=== PATIENT | male | born 1975 | race African-American/Black ===

== ENCOUNTER 2020-04-26 18:34 | Emergency (ER) | payer MEDICAID, SELFPAY ==
--- NOTE | 2020-04-26 19:57 | ED_ITS ---
HPI - Wound/Laceration General Chief Complaint: Wound/Laceration Stated Complaint: Laceration Time Seen by Provider: 04/26/20 19:35 Source: patient Mode of arrival: ambulatory Limitations: language barrier History of Present Illness HPI narrative: 45-year-old male past medical history of diabetes presents with laceration to the left thumb. He was cleaning his knee clean for and the knife slipped out of his hand cutting the lateral aspect of the left thumb. He was able to control bleeding by applying a pressure dressing. He does not have any difficulty moving his thumb but states that every time he bends it the wound opened and he starts bleeding. Onset (ago): hour(s) (Within the hour of arrival) Location: other (Left thumb) Place: home Patient tetanus UTD: No Context: accidental Associated symptoms: none Treatments prior to arrival: bandage Related Data Previous Rx's Medication Instructions Recorded amoxicillin-pot clavulanate 1 tab PO Q12H 10 Days #20 tab 04/26/20 [Augmentin] Allergies Allergy/AdvReac Type Severity Reaction Status Date / Time No Known Allergies Allergy Unverified 12/12/19 18:26 [No Known Allergies*] Review of Systems Review of Systems: Constitutional: No Fever, No Chills ENT/Mouth: No Ear Pain, No Hoarseness, No sore throat Eyes: No Eye Pain, No Swelling, No Redness, No Foreign Body Cardiovascular: No Chest Pain, No SOB Respiratory: No Cough, No Dyspnea Gastrointestinal: No Nausea, No Vomiting, No Diarrhea, No abdominal Pain Genitourinary: No Dysuria, No Hematuria Musculoskeletal: No joint pain, No Myalgias, No Joint Swelling Skin: Positive left thumb lacerations, No rash Neuro: No Weakness, No Numbness, No Paresthesias, No Loss of Consciousness, No Dizziness, No Headache Psych: No Anxiety/Panic, No Depression Heme/Lymph: no easy bruising, no Lymphadenopathy Endocrine: No Polyuria, No Polydipsia Yes all other systems are reviewed and are negative [facility] Past Medical History Attestation statement: The following information was validated with the patient. Source: old records reviewed Medical History (Updated 04/26/20 @ 20:43 by Gloria Canseco NP) Diabetes Social History Social History Alcohol intake: never Smoking Status: Current every day smoker Use of substances other than those prescribed or required for medical reasons: Yes Substance Use Type: Marijuana Advance Directives: No Advance Directives Information Provided: Yes Physical Exam Vital Signs: Vital Signs: Last Vital Signs Temp 97 F 04/26/20 20:03 Pulse 92 04/26/20 20:03 Resp 17 04/26/20 20:03 BP 138/87 04/26/20 20:03 Pulse Ox 98 04/26/20 20:03 Body Mass Index 30.7 Appearance: Alert. Oriented X3. No acute distress. Eyes: Pupils equal, round and reactive to light. ENT: Pharynx normal. Neck: Normal inspection. Neck supple. CVS: Normal heart rate and rhythm. Pulses normal. Respiratory: No respiratory distress. Breath sounds normal. Abdomen: Soft and nontender. Skin: 2 cm laceration to left lateral thumb, all other Skin warm and dry. Normal skin color. Normal skin turgor. Extremities: No lower extremity edema. Full range of motion to all digits, pulses equal, no indication of tendon injury, strength 5/5 to all extremities and digits Neuro: No motor deficit. No sensory deficit. Course Course Course Narrative: 45-year-old male presents for lacerations to the left thumb. Plan of care is for x-ray and 2 suture, update Tdap vaccine. We will treat with antibiotics as patient was cutting meat and he is an insulin- dependent diabetic. Prepped and draped in sterile fashion, 4 sutures applied. Please refer to procedure note for full details. Patient tolerated procedure well. Full range of motion and brisk capillary refill status post laceration repair. Patient verbalized understanding of and agrees to plan of care discharge home. Does understand that he must wait for 14 days to remove sutures. distance education faculty liaison utilized for all correspondence. Google translate utilized for discharge instructions. MDM - Wound/Laceration Differential Diagnosis Differential diagnosis: Likely laceration Medical Records Attestation: I reviewed the patient's medical records. Imaging Data Left thumb x-ray: Attestation: I personally reviewed and interpreted this imaging study as follows: Radiologist's impression: EXAMINATION: XR FINGER, LEFT CLINICAL INFORMATION: Thumb laceration COMPARISON: None TECHNIQUE: 4 views FINDINGS: Question subtle skin/soft tissue irregularity at the level of the distal first proximal phalanx. No radiopaque foreign body is identified. No fracture or dislocation. Remainder of the bones appear intact. XR/XR finger LT min 2V IMPRESSION: No evidence of acute fracture. No radiopaque foreign body is identified. Discharge Plan Discharge Clinical Impression: Laceration Patient Disposition: Home, Self-Care Instructions: Finger Laceration (ED) Additional Instructions: Te evaluaron laceraci?n en el pulgar devika. Por favor, regrese en 14 d?as para que le quiten las suturas. Por favor, tome Augmentin shannan se indica. Complete todo el curso de adria medicamento. No remoje, ba?e ni exponga la laceraci?n a l?quidos roberto carlos largos per?odos de tiempo. Si nota alguna indicaci?n de infecci?n, hinchaz?n o p?rdida de sensibilidad en el pulgar, por favor regrese al departamento de emergencias inmediatamente. Castro por elegir adria departamento de emergencias para la evaluaci?n. Por favor, renato un seguimiento con el m?dico de atenci?n primaria seg?n sea necesario. Regrese al servicio de urgencias para cualquier s?ntoma nuevo, preocupante o que empeore. You were evaluated laceration to the left thumb. Please return in 14 days to have sutures removed. Please take Augmentin as directed. Complete the entire course of this medication. Do not soak, bathe, or expose the laceration to liquids for lengthy periods of time. If you notice any indication of infection, swelling, or loss of sensation in the thumb please return to the emergency department immediately. Thank you for choosing this emergency department for evaluation. Please follow-up with primary care physician as needed. Return to the emergency department for any new, concerning, or worsening symptoms. Prescriptions: New amoxicillin-pot clavulanate [Augmentin] 875-125 mg tablet 1 tab PO Q12H 10 Days Qty: 20 RF: 0 Interventions: ED Discharge Assessment Last Done: 04/26/20 21:25
[2020-04-26 20:03] VITALS: BP 138/87; PULSE 92; RESP 17; TEMP 36.1; O2SAT 98; BMI 30.7
[2020-04-26] MEDS: Lidocaine HCl 2 % MPF 5 ML VIAL SUBCUT (20:14)
[2020-04-26] MEDS: Amoxicillin/Potassium Clav 875 MG TABLET PO (20:47)
--- NOTE | 2020-04-26 20:47 | PC.NURSE ---
pt medicatred per order
== END 2020-04-26 21:44 | disposition home or self-care (01) ==
PROVIDERS: Emergency Provider Internal Medicine; PCP Internal Medicine
DX: S61.012A Laceration without foreign body of left thumb without damage to nail, initial encounter (principal); S60.312A Abrasion of left thumb, initial encounter; M79.645 Pain in left finger(s); E11.9 Type 2 diabetes mellitus without complications; W26.0XXA Contact with knife, initial encounter; Y93.G3 Activity, cooking and baking; Y92.000 Kitchen of unspecified non-institutional (private) residence as the place of occurrence of the external cause; Y99.9 Unspecified external cause status; Z23 Encounter for immunization; Z79.4 Long term (current) use of insulin
CPT/HCPCS: 73140; 90471; 90715; 99284

== ENCOUNTER 2020-05-10 15:38 | Emergency (ER) | payer MEDICAID, SELFPAY ==
--- NOTE | 2020-05-10 15:45 | ED.WOUNDLAC ---
HPI - Wound/Laceration General Stated Complaint: suture removal Time Seen by Provider: 05/10/20 15:44 Source: patient Mode of arrival: ambulatory Limitations: no limitations History of Present Illness HPI narrative: 45 y/o male presenting for suture removal in his left thumb. He was initially seen here on 04/26 after sustaining an accidental laceration from a knife. Wound has been healing nicely and he has no complaints. Onset (ago): week(s) (2) Extremity Location: left: hand (thumb) Place: home Patient tetanus UTD: Yes Context: accidental Associated symptoms: none Related Data Previous Rx's Medication Instructions Recorded amoxicillin-pot clavulanate 1 tab PO Q12H 10 Days #20 tab 04/26/20 [Augmentin] Allergies Allergy/AdvReac Type Severity Reaction Status Date / Time No Known Allergies Allergy Unverified 12/12/19 18:26 [No Known Allergies*] Review of Systems Review of Systems: Constitutional: No Fever, No Chills Musculoskeletal: No joint pain Skin: No Skin Lesions, No rash Neuro: No Weakness, No Numbness Heme/Lymph: No Bruising PMFSH Past Medical History Attestation statement: The following information was validated with the patient. Medical History Diabetes Social History Social History Alcohol intake: never Smoking Status: Current every day smoker Substance Use Type: Marijuana Physical Exam Vital Signs: Vital Signs: Appearance: Alert. Oriented X3. No acute distress. HEENT: normal inspection Respiratory: No respiratory distress. Skin: Skin warm and dry. Normal skin color. Normal skin turgor. No rashes. Extremities: left thumb with well healing laceration, [address] no surrounging erythema, drainage or tenderness. normal thumb ROM and sensation. Neuro: Oriented X 3. No motor deficit. No sensory deficit. Course Course Course Narrative: 45 y/o male presenting for suture removal in his left thumb after repair on 04/26. Wound has healed nicely. Sutures removed. Stable for d/c. Reevaluation(s) Reevaluation #1: Procedure at 15:45 - wound was cleaned with betadine and rubbing alcohol. 4 sutures were removed using sterile scissors and tweezers wound is completely closed and healed nicely band-aid applied. patient tolerated well. normal thumb ROM and sensation. Discharge Plan Discharge Clinical Impression: Encounter for removal of sutures Patient Disposition: Home, Self-Care Instructions: Stitches Removal (ED) Additional Instructions: Recommend bacitracin or Neosporin daily to continue wound healing. Prescriptions: No Action amoxicillin-pot clavulanate [Augmentin] 875-125 mg tablet 1 tab PO Q12H 10 Days Qty: 20 RF: 0 Print Language: Swedish
[2020-05-10 15:53] VITALS: BP 139/86; PULSE 100; RESP 16; TEMP 36.5; O2SAT 98; BMI 30.7
[2020-05-10 15:55] VITALS: BP 139/86; PULSE 100; RESP 16; TEMP 36.5; O2SAT 98; BMI 30.7
== END 2020-05-10 16:06 | disposition home or self-care (01) ==
LOC: HO.ED 16:02
PROVIDERS: Emergency Provider Emergency Medicine Emergency Medical Services; PCP Internal Medicine
DX: Z48.02 Encounter for removal of sutures (principal)
CPT/HCPCS: 99283

== ENCOUNTER 2020-05-12 10:00 | Outpatient (RCR) | payer MEDICAID, SELFPAY ==
--- NOTE | 2020-03-16 13:18 | MHC.OT.OEV ---
[address] [phone] F: [phone] Occupational Therapy Evaluation Diagnosis: L LATERAL EPICODYLITIS OF L ELBOW Date of Onset: 12/16/19 Attending Provider: Thalia Galdamez Prescribed Treatment: EVAL AND TREAT History of Current Condition: REPORTS NEW ONSET OF PAIN TO LEFT ELBOW AND RETURN OF PAIN TO LEFT SHOULDER. PAIN RADIATES DOWN LEFT ARM. DENIES CHANGE IN ROUTINE OR NEW HOBBIES. RECENT CORTISONE INJECTION TO LEFT SHOULDER. STATES HX OF ATTENDING THERAPY FOR L SHOULDER OVER ONE YEAR AGO AT [facility] CORE PT. Significant Medical History: DM, TOB USE, CERVICAL RADICULOPATHY, SPINAL STENOSIS OF THORACOLUMBAR REGION, OA Precautions/Contraindications: HX DM Patient Goals: FOR THE PAIN TO GO AWAY Hand Dominance: Right QuickDASH Score: UNABLE TO COMPLETE Prior Level of Function and Occupation Self Care, Employment, Leisure: DISABLED x5 YEARS DUE TO ISSUES IN BACK; RECEIVED ASSIST WITH IADLs AT BASELINE Living Situation, Family and/or Social Support: LIVES WITH SPOUSE Current Level of Function and Occupation Self Care, Employment, Leisure: DIFFICULTIES WITH PUTTING ON SHOES AND SWEATER/ JACKET; Pt VAGUE WITH RECALLING RECENT LIMITATIONS FROM LUE PAIN Sleep: SEVERE DIFFICULTIES, UNABLE TO LAY ON LEFT SIDE Driving: DOES NOT DRIVE Vision: IMPAIRED, WEARS EYE GLASSES Balance: AMBULATES WITH SPC (HELD IN RIGHT HAND) DUE TO BACK PAIN AND LEG DISCREPINCY Pain Assessment Pain Score: 7-9 Pain Scale Used: Numeric (0 - 10) Pain Location and Description: L ELBOW (7-8/10 AT REST AND 9/10 WITH ACTIVITY) Aggravating Factors: ELBOW EXTENSION AND FOREARM ROTATION; WEIGHTBEARING THROUGH LEFT ARM Alleviating Factors: DICLOFENAC GEL PRESCRIBED BY MD, OXYCODONE; HAS NOT TRIED ICE/HEAT Skin and Soft Tissue Assessment Skin and Soft Tissue: Comments: WNL Sensory Assessment Temperature: Light Touch: Proprioception: Vibration: Comments: CONT TO ASSESS AT F/U SESSIONS DUE TO TIME CONSTRAINT; HX OF DM WITH REPORTS OF NUMBNESS AT DISTAL DIGITS Edema Assessment Upper Extremity: WNL Lower Extremity: Comments: CIRCUMFERENCE OF FOREARM, 20 CM PROXIMAL TO U.S. LEFT: 29.8 CM, RIGHT: 30.1 CM CIRCUMFERENCE OF WRIST, DISTAL TO U.S. LEFT: 17.7 CM, RIGHT: 18.3 CM Dexterity Assessment Dexterity: WFL Comments: CONT TO ASSESS NEEDED Special Tests Comments: AROM(PROM) Strength Shoulder Flexion: L 95, R 150 Extension: L 55, R 88 Abduction: Internal Rotation: External Rotation: Comments: Flexion: Extension: Abduction: Internal Rotation: External Rotation: Comments: Elbow Flexion: L 106, R 145 Extension: L 6, R 4 Pronation: L 86, R 88 Supination: L 82, R 83 Comments: Flexion: Extension: Pronation: Supination: Comments: Wrist Flexion: L 52, R 62 Extension: L 60, R 60 Ulnar Deviation: Radial Deviation: Comments: Flexion: Extension: Ulnar Deviation: Radial Deviation: Comments: Digits Index MCP: PIP: DIP: Long MCP: PIP: DIP: Ring MCP: PIP: DIP: Small MCP: PIP: DIP: Comments: Gross Grasp: L 15, R 116 Lateral Pinch: Two-Point Pinch: Three-Jaw Isauro: Comments: L ELBOW EXT 5 POUND; R ELBOW EXT 120 POUND FINANCIAL INSTITUTION MANAGER STRENGTH INCREASE PAIN TO LATERAL ELBOW WITH ELBOW EXT TESTING Patient Education Primary Language: Special Equipment Technician Required: Yes Current Knowledge: Minimal, needs reinforcement Teaching Method: Demonstration Handouts Verbal Education Needs Identified on Evaluation: ADL's Disease Information Equipment Use Exercise Pain Safety How did patient/family demonstrate learning? Patient demonstrates Patient verbalizes Family/SO demonstrates Family/SO verbalizes Needs reinforcement Barriers to Learning: Vision Other Readiness for Learning: Accepting Who was educated? Patient Family/spouse Comments: VIVIANA MASONRY SUPERVISOR UTILIZED #[id number] Plan of Care Assessment: 45 Y/O BERMUDIAN SPEAKING M P/W L LATERAL ELBOW PAIN, WELL RADIATING PAIN THROUGHOUT NON-DOMINANT L UE. HE STATES HIS PAIN IS GREATEST WITH END RANGE ELBOW EXTENSION AND ROTATION OF THE FOREARM. Pt WOULD BENEFIT FROM ADDITIONAL PATIENT EDUCATION ON MECHANISM OF INJURY, POSSIBLE USE OF CFB AND STRETCHING/STRENGTHENING TO ADDRESS THE AREAS MENTIONED ABOVE. STG Duration: 2 WEEKS Short Term Goals: IND HEP IND USE OF HEAT/ICE IND JOINT PROTECTION AND ACTIVITY MODIFICATION IND ORTHOSIS/ CFB WEAR REPORT <4/10 PAIN AT REST LTG Duration: Mcc Goals: REPORT MIN-MOD SLEEP INTERRUPTIONS DUE TO LUE PAIN REPORT <4/10 PAIN WITH MODERATE LEVEL ADLs/IADLs IMPROVE GROSS GRASP LUE >50 POUNDS Frequency and Duration: The patient will be seen Treatment Plan: Therapeutic Exercise Therapeutic Activity Home Exercise Program Splinting Neuro Re-ed Patient Education Desensitization/Sensory Re-ed Edema Control ADL Training NMES MHP Cold Packs Joint Mobilization Soft Tissue Mobilization Kinesiotaping Electronically Signed By: LUISA MARINO OTR/L Please sign and return to therapist, Thank you for your referral.
--- NOTE | 2020-05-12 13:19 | MHC.OT.DC ---
[address] [phone] F: [phone] Occupational Therapy Discharge Note Provider: Thalia Galdamez Diagnosis: L LATERAL EPICODYLITIS OF L ELBOW Date of Surgery: Date of Evaluation: 03/16/20 Date of Discharge: 05/12/20 Treatments to Date: 11 Cancellations to Date: No Shows to Date: Discharge Status: Achieved Goals Improved Function Independent with HEP Discharge Summary: MR. KATHE SMITH HAS ACHIEVED HIS GOALS AND REPORTS MINIMAL PAIN TO LEFT LATERAL ELBOW. A NIGHT RESTING SPLINT WAS FABRICATED AND HAS SIGNIFICANTLY REDUCED HIS PAIN. HE DEMO GOOD FOLLOW THOUGH WITH HIS HEP AND ORTHOSIS WEAR, WELL GOOD UNDERSTANDING OF JOINT PROTECTION. NO LEFT HAND PARASTHESIA REPORTED. D/C OT SERVICES. Electronically Signed By: LUISA MARINO OTR/L Reviewed/agree with student documentation: N/A Therapist: Please Sign and return to therapist, thank you for your referral.
== END 2020-05-12 13:20 | disposition other institution (70) ==
LOC: HO.OT 10:00
PROVIDERS: PCP Internal Medicine; Visit Provider Internal Medicine
DX: M77.12 Lateral epicondylitis, left elbow (principal)
CPT/HCPCS: 29125; 97035; 97110; 97140; 97166; 97760

== ENCOUNTER 2020-08-21 10:00 | Outpatient (RCR) | payer MEDICAID, SELFPAY ==
--- NOTE | 2020-06-26 15:29 | MHC.PT.EP ---
[facility] [place] [facility] [place] [facility] [place] [facility] [address] [phone] F: [phone] F: [phone] F: [phone] F: [phone] Physical Therapy Plan of Care Date of Evaluation: 06/26/20 Date of Surgery: 10/2015 Diagnosis: LUMBAR DISC HERNIATION WITH RADICULOPATHY (M51.16) Assessment: Pt presents to PT with diagnosis of lumbar disc herniation with radiculopathy (M51.16) . upon exam pt demonstrates impairments of increased pain, decreased LE ROM and strength anne marie, altered gait pattern with decreased speed of ambulation and increased reliance on assistive device. Functional limitations include decreased ability to perform walking and transfers without assistive device, decreased tolerance to performing self care and homemaking tasks, decreased ability to lift greater than 5#, decreased ability to participate in community and recreational tasks. Frequency and Duration: The patient will be seen 2 x week for 6 weeks Short Term Goals: review and progress previous HEP Track Greaser Goals: IN 6 WEEKS INDEPENDENT HEP AND SELF MANAGEMENT OF SYMPTOMS LE STRENGTH AT MINIMUM OF 4/5 T/O TO AMBULATE AT MINIMUM 15 MINS WITH PAIN NO GREATER THAN 3/10 TO CLIMB STAIRS WITH RECIPROCAL GAIT AND 1 RAIL Treatment Plan: Modalities to reduce pain, spasms and effusion. Manual therapy to restore motion and function. Therapeutic exercise to improve strength and flexibility. Neuromuscular re-education for posture and balance. Therapeutic activities to return to functional activities of daily living. Electronically signed by: ANN MALDONADO PT, DPT Please sign and return to therapist. Thank you for your referral.
--- NOTE | 2020-09-15 15:36 | MHC.PT.DC ---
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 HE DEMONSTRATES IMPROVED BODY MECHANICS AND POSTURE. ROM AND STRENGTH OF LUMBAR SPINE AND HIPS IS IMPROVED BUT PAIN LEVELS REMAIN ABOUT THE SAME SUBJECTIVELY. AT THIS TIME IT IS RECOMMENDED THAT KRISTEN CONTINUE WITH CURRENT HOME PROGRAM, PROGRESSING TO COMMUNITY BASED FITNESS PROGRAM ABLE. Electronically signed by: ANN MALDONADO PT, DPT Please sign and return to therapist. Thank you for your referral.
== END 2020-09-15 15:37 | disposition other institution (70) ==
LOC: HO.PT 10:00
PROVIDERS: PCP Internal Medicine; Visit Provider Internal Medicine
DX: M51.16 Intervertebral disc disorders with radiculopathy, lumbar region (principal)
CPT/HCPCS: 97014; 97110; 97140; 97162; 97530; 97535

== ENCOUNTER 2021-02-02 20:56 | Emergency (ER) | payer MEDICAID, SELFPAY ==
--- NOTE | ~2021-02-02 | XR_ITS ---
EXAMINATION: XR CHEST CLINICAL INFORMATION: Cough. COMPARISON: None TECHNIQUE: Frontal portable view of the chest was obtained. 9:57 PM FINDINGS: No significant abnormality is noted involving the heart, lungs, mediastinum, bony thorax or soft tissues. XR/XR chest 1V IMPRESSION: Unremarkable examination.
[2021-02-02 21:03] VITALS: BP 140/76; PULSE 102; RESP 20; O2SAT 96; BMI 30.7
--- NOTE | 2021-02-02 21:04 | ECG_ITS ---
Test Reason : dyspnea Blood Pressure : / mmHG Vent. Rate : 089 BPM Atrial Rate : 089 BPM P-R Int : 142 ms QRS Dur : 090 ms QT Int : 338 ms P-R-T Axes : 046 041 039 degrees QTc Int : 411 ms Normal sinus rhythm RSR' or QR pattern in V1 suggests right ventricular conduction delay Otherwise normal ECG No significant changes seen Heart rate has increased Referred By: Kitty Taylor Electronically Signed By:MARIOLA HERNANDEZ MD
--- NOTE | 2021-02-02 21:06 | ED.URI ---
HPI - URI/Sore Throat General Chief Complaint: Dyspnea Stated Complaint: sob Time Seen by Provider: 02/02/21 21:04 Source: patient and aerial photograph interpreter Mode of arrival: ambulatory Limitations: no limitations History of Present Illness HPI Narrative: patient is vaccinated MD elicited complaint: cough, rhinorrhea and nasal congestion Pertinent past history: asthma Onset (ago): day(s) (4) Consistency: progressively worsening Severity: moderate Description of mucous: clear Able to tolerate fluids by mouth: Yes Exacerbating factors: exertion Relieving factors: nothing Context: sick contacts ( has URI) Associated symptoms: chills, rhinorrhea, cough and shortness of breath Treatments prior to arrival: none Related Data Previous Rx's Medication Instructions Recorded amoxicillin 875 mg-potassium 1 tab PO Q12H 10 Days #20 tab 04/26/20 clavulanate 125 mg tablet (Augmentin) albuterol sulfate 90 mcg/actuation 2 puff INHALATION QID PRN #6.7 g 02/03/21 aerosol inhaler azithromycin 250 mg tablet 250 mg PO DAILY 4 Days #4 tab 02/03/21 hydrocodone-homatropine 5 mg-1.5 5 ml PO Q6H PRN #60 ml 02/03/21 mg/5 mL oral syrup prednisone 20 mg tablet 40 mg PO DAILY 5 Days #10 tab 02/03/21 Allergies Allergy/AdvReac Type Severity Reaction Status Date / Time No Known Allergies Allergy Unverified 12/12/19 18:26 [No Known Allergies*] Review of Systems Review of Systems: Constitutional : No Fever, pos Chills ENT/Mouth : No Hoarseness, No sore throat, pos Rhinorrhea Eyes: No Redness, No Discharge, No Vision Changes Cardiovascular : No Chest Pain, positive SOB, positive Dyspnea on Exertion, No Edema Respiratory : positive Cough, No Sputum, positive Wheezing, Gastrointestinal : No Nausea, No Vomiting, No Diarrhea, No abdominal Pain Genitourinary : No Dysuria, No Hematuria Musculoskeletal : No joint pain, No Myalgias Skin : No rash Neuro : No Weakness, No Numbness, No Headache Psych : No anxiety, depression Heme/Lymph: No Bruising, No Bleeding Endocrine : No Polyuria, No Polydipsia All other systems reviewed and are negative PMFSH Past Medical History Attestation statement: The following information was validated with the patient. Medical History Asthma Diabetes Diabetes Hypertension Social History Social History (Updated 02/02/21 @ 21:09 by Kitty Taylor DO) Alcohol intake: never Patient Tobacco Use Status: Current someday Tobacco user Substance Use Type: Marijuana Advance Directives: No Advance Directives Information Provided: Yes Physical Exam Vital Signs: Vital Signs: Last Vital Signs Temp 99.3 F 02/02/21 22:53 Pulse 108 H 02/02/21 23:42 Resp 20 02/02/21 23:42 BP 133/64 02/02/21 23:42 Pulse Ox 95 02/02/21 23:42 Body Mass Index 30.7 Appearance: Alert. Oriented X3. Mild acute distress. Eyes: Pupils equal, round and reactive to light. ENT: Pharynx normal. Neck: Normal inspection. Neck supple. CVS: tachycardic heart rate and rhythm. Pulses normal. Respiratory: Mild respiratory distress persistent bronchospastic cough. Breath sounds diminished with diffuse end wheezes and rhonchi noted Abdomen: Soft and non-tender. Skin: Skin warm and dry. pale skin color. Normal skin turgor. Extremities: No lower extremity edema. No calf ttp Neuro: Oriented X 3. No motor deficit. No sensory deficit. Course Course Course Narrative: lactic acidosis due to albuterol use and not infection or severe sepsis will treat for ceftriaxone/azithromycin - bronchitis will continue to observe if no improvement plan to admit 97% on RA after hour long neb still coughing and wheezing patient's wheezing has resolved, much improved lactic acidosis due to albuterol and not infection or severe sepsis INH ordered for home, feels much better, no hypoxia, wheezing resolved MDM - URI/Sore Throat MDM Narrative Medical decision making narrative: 45 yo male with DM, HTN, hx of asthma though hasn't had a flare in a long time, + smoker comes in with 4 days of URI he is vaccinated - his also just had a URI but he is vague about her issues. At this time he will need labs, CXR for pneumonia, PRC flu/covid/RSV (suspected RSV), neb treatment 5mg albuterol, IV steroids. Dispo per results and improvement. Lab Data Result diagrams: 02/02/21 21:27 02/02/21 21:27 Labs: Lab Results 02/02/21 02/02/21 02/02/21 Range/Units 21:20 21:27 21:27 WBC 9.6 (4.8-10.8) X10*3/uL RBC 4.90 (4.60-5.80) X10*6/uL Hgb 14.5 (14.0-18.0) g/dl Hct 42.7 (42.0-52.0) % MCV 87.1 (80.0-98.0) fL MCH 29.6 (27.0-33.0) pg MCHC 34.0 (31.0-36.0) g/dl RDW 13.1 (11.0-16.0) % Plt Count 241 (160-400) X10*3/uL MPV 10.8 (9.4-12.4) fL Immature Gran % (Auto) 0.2 (0.0-0.4) % Neut % (Auto) 68.1 (45-73) % Lymph % (Auto) 20.2 (20-40) % [place] % (Auto) 9.8 (2-11) % Eos % (Auto) 1.3 (0-4) % Baso % (Auto) 0.4 (0-2) % Lymph # (Auto) 1.9 (1.2-4.9) X10*3/uL [place] # (Auto) 0.9 (0.1-1.2) X10*3/uL Eos # (Auto) 0.1 (0.0-0.4) X10*3/uL Baso # (Auto) 0.0 (0.0-0.2) X10*3/uL Abs Immat Gran (auto) 0.02 (0.00-0.03) X10*3/uL Absolute Neuts (auto) 6.5 (2.0-8.3) x10*3/uL Absolute Nucleated RBC 0.000 (0.0-0.012) X10*3/uL Nucleated RBC % (auto) 0.0 (0.0-0.2) /100WBC Sodium 140 (135-145) mmol/L Potassium 4.0 (3.3-5.1) mmol/L Chloride 104 (96-108) mmol/L Carbon Dioxide 26 (22-29) mmol/L Anion Gap 14 (12-20) BUN 15 (9-16) mg/dL Creatinine 1.18 (0.5-1.4) mg/dL Estim Creat Clear Calc 96.1 Estimated GFR > 60 Random Glucose 155 H (60-115) mg/dL Lactic Acid (0.5-2.0) mmol/L Lactic Acid Fup @ 2Hr (0.5-2.0) mmol/L Calcium 9.8 (8.4-10.2) mg/dL Magnesium 1.9 (1.6-2.6) mg/dL Total Bilirubin 0.4 (0.0-1.0) mg/dL Direct Bilirubin 0.2 (0.0-0.5) mg/dL AST 20 (5-37) U/L ALT 38 (0-40) U/L Alkaline Phosphatase 75 (39-117) U/L Total Protein 7.6 (6.5-8.0) g/dL Albumin 4.6 (3.5-5.0) g/dL Influenza Type A (PCR) NEGATIVE (Negative) Influenza Type B (PCR) NEGATIVE (Negative) RSV RNA Qual (PCR) NEGATIVE (Negative) SARS-CoV-2 RNA (RT-PCR) NEGATIVE (Negative) 02/02/21 02/02/21 Range/Units 21:27 23:48 WBC (4.8-10.8) X10*3/uL RBC (4.60-5.80) X10*6/uL Hgb (14.0-18.0) g/dl Hct (42.0-52.0) % MCV (80.0-98.0) fL MCH (27.0-33.0) pg MCHC (31.0-36.0) g/dl RDW (11.0-16.0) % Plt Count (160-400) X10*3/uL MPV (9.4-12.4) fL Immature Gran % (Auto) (0.0-0.4) % Neut % (Auto) (45-73) % Lymph % (Auto) (20-40) % [place] % (Auto) (2-11) % Eos % (Auto) (0-4) % Baso % (Auto) (0-2) % Lymph # (Auto) (1.2-4.9) X10*3/uL [place] # (Auto) (0.1-1.2) X10*3/uL Eos # (Auto) (0.0-0.4) X10*3/uL Baso # (Auto) (0.0-0.2) X10*3/uL Abs Immat Gran (auto) (0.00-0.03) X10*3/uL Absolute Neuts (auto) (2.0-8.3) x10*3/uL Absolute Nucleated RBC (0.0-0.012) X10*3/uL Nucleated RBC % (auto) (0.0-0.2) /100WBC Sodium (135-145) mmol/L Potassium (3.3-5.1) mmol/L Chloride (96-108) mmol/L Carbon Dioxide (22-29) mmol/L Anion Gap (12-20) BUN (9-16) mg/dL Creatinine (0.5-1.4) mg/dL Estim Creat Clear Calc Estimated GFR Random Glucose (60-115) mg/dL Lactic Acid 2.2 H* (0.5-2.0) mmol/L Lactic Acid Fup @ 2Hr 3.1 H* (0.5-2.0) mmol/L Calcium (8.4-10.2) mg/dL Magnesium (1.6-2.6) mg/dL Total Bilirubin (0.0-1.0) mg/dL Direct Bilirubin (0.0-0.5) mg/dL AST (5-37) U/L ALT (0-40) U/L Alkaline Phosphatase (39-117) U/L Total Protein (6.5-8.0) g/dL Albumin (3.5-5.0) g/dL Influenza Type A (PCR) (Negative) Influenza Type B (PCR) (Negative) RSV RNA Qual (PCR) (Negative) SARS-CoV-2 RNA (RT-PCR) (Negative) ECG Data Attestation: I personally reviewed and interpreted this ECG as follows: ECG interpretation date: 02/02/21 ECG interpretation time: 21:27 Interpretation: Rate: 89 Rhythm: NSR [place]: normal Normal P waves. Normal CHRIS. Normal QRS complex. ST T wave : normal no CATALINA qTC: normal prior studies: no acute ischemia The study has been interpreted contemporaneously by me. . Critical Care Time Critical Care Time Critical Care Time: Yes Total Critical Care Time: 35 Attestation: hour long neb I attest to this time spent taking care of the patient Discharge Plan Discharge Clinical Impression: Bronchitis, Acidosis, lactic Patient Disposition: Home, Self-Care Instructions: Acute Bronchitis (ED) Additional Instructions: return to ED for any worsening symptoms or concerns controlar los niveles de az?car en issa mientras bill esteroides Prescriptions: New azithromycin 250 mg tablet 250 mg PO DAILY 4 Days Qty: 4 RF: 0 prednisone 20 mg tablet 40 mg PO DAILY 5 Days Qty: 10 RF: 0 albuterol sulfate 90 mcg/actuation HFA aerosol inhaler 2 puff inhalation QID PRN (Reason: shortness of breath or wheezing) Qty: 6.7 RF: 0 hydrocodone-homatropine 5-1.5 mg/5 mL syrup 5 ml PO Q6H PRN (Reason: cough) Qty: 60 RF: 0 No Action amoxicillin-pot clavulanate [Augmentin] 875-125 mg tablet 1 tab PO Q12H 10 Days Qty: 20 RF: 0 Stand Alone Forms: Work/School Release Print Language: German
[2021-02-02] MEDS: Albuterol Sulfate (0.083%) 2.5 MG/3 ML VIAL.NEB 5 MG INHALE ×2 (21:12→21:21)
[2021-02-02 21:15] VITALS: PULSE 89; O2SAT 98
[2021-02-02 21:34] LABS: MANUAL DIFF FLAG NO
[2021-02-02 21:35] LABS: Basophils Percent Auto 0.4 % (0-2); Eosinophils Absolute Auto 0.1 X10*3/uL (0.0-0.4); Eosinophils Percent Auto 1.3 % (0-4); Hematocrit 42.7 % (42.0-52.0); Hemoglobin 14.5 g/dl (14.0-18.0); Imm Gran Abs Auto 0.02 X10*3/uL (0.00-0.03); Imm Gran Pct Auto 0.2 % (0.0-0.4); Lymphocytes Absolute Auto 1.9 X10*3/uL (1.2-4.9); Lymphocytes Percent Auto 20.2 % (20-40); Mean Corpuscular Hemoglobin 29.6 pg (27.0-33.0); Mean Corpuscular Volume 87.1 fL (80.0-98.0); Mean Platelet Volume 10.8 fL (9.4-12.4); Monocytes Absolute Auto 0.9 X10*3/uL (0.1-1.2); Monocytes Percent Auto 9.8 % (2-11); Neutrophils Absolute Auto 6.5 x10*3/uL (2.0-8.3); Neutrophils Percent Auto 68.1 % (45-73); Platelet Count 241 X10*3/uL (160-400); Red Cell Distribution Width 13.1 % (11.0-16.0); White Blood Count 9.6 X10*3/uL (4.8-10.8)
[2021-02-02] MEDS: dexAMETHasone sod phosphate 4 MG/ML VIAL 6 MG IVPUSH (21:35)
[2021-02-02 21:36] VITALS: BP 162/79; PULSE 99; RESP 17; O2SAT 99
[2021-02-02] MEDS: HYDROcodone/Homat 5/1.5/5 ML 5 ML SYRUP PO (21:36)
[2021-02-02 21:55] LABS: Alanine Aminotransferase 38 U/L (0-40); Albumin Level 4.6 g/dL (3.5-5.0); Alkaline Phosphatase 75 U/L (39-117); Anion Gap 14 (12-20); Aspartate Amino Transferase 20 U/L (5-37); Bilirubin Direct 0.2 mg/dL (0.0-0.5); Bilirubin Total 0.4 mg/dL (0.0-1.0); Blood Urea Nitrogen 15 mg/dL (9-16); Calcium 9.8 mg/dL (8.4-10.2); Carbon Dioxide 26 mmol/L (22-29); Chloride 104 mmol/L (96-108); Creatinine Clr Calc Pharmacy 96.1; Estimated Glomerular Filt Rate > 60; Glucose Random 155 mg/dL (60-115); Magnesium 1.9 mg/dL (1.6-2.6); Sodium 140 mmol/L (135-145); Total Protein 7.6 g/dL (6.5-8.0)
[2021-02-02 22:03] LABS: Lactic Acid 2.2 mmol/L (0.5-2.0)
[2021-02-02 22:28] LABS: Influenza A PCR NEGATIVE (Negative); Influenza B PCR NEGATIVE (Negative); Resp Syncy Virus RNA Qual PCR NEGATIVE (Negative); SARS COV2 PCR INHOUSE NEGATIVE (Negative)
[2021-02-02] MEDS: 0.9 % Sodium Chloride 1,000 ML 999 ML IV (22:40)
[2021-02-02] MEDS: cefTRIAXone sodium 1 GM in 0.9 % Sodium Chloride 50 ML IV (22:40)
[2021-02-02] MEDS: Azithromycin 500 MG in 0.9 % Sodium Chloride 250 ML 125 MG IV (22:50)
[2021-02-02 22:53] VITALS: BP 133/76; PULSE 108; RESP 18; TEMP 37.4; O2SAT 95
[2021-02-02] MEDS: Acetaminophen 325 MG TABLET 650 MG PO (22:57)
[2021-02-02 23:32] LABS: Reflex Lactate? Lactic Acid Added
[2021-02-02 23:42] VITALS: BP 133/64; PULSE 108; RESP 20; O2SAT 95
[2021-02-03 00:14] LABS: ~Lactic Acid-LAB USE ONLY 3.1 mmol/L (0.5-2.0)
[2021-02-03 00:25] VITALS: BP 117/66; PULSE 104; RESP 15; TEMP 37; O2SAT 96
[2021-02-03] MEDS: Albuterol Sulfate 90 MCG 8 GM INHALER 2 PUFF INHALE (00:25)
[2021-02-03 01:51] LABS: Reflex Lactate? 2 Y
== END 2021-02-03 00:30 | disposition home or self-care (01) ==
PROVIDERS: Emergency Provider Emergency Medicine; PCP Internal Medicine
DX: J40 Bronchitis, not specified as acute or chronic (principal); E87.2 Acidosis; E11.9 Type 2 diabetes mellitus without complications; I10 Essential (primary) hypertension; J45.909 Unspecified asthma, uncomplicated; F17.210 Nicotine dependence, cigarettes, uncomplicated; Z20.822 Contact with and (suspected) exposure to COVID-19
CPT/HCPCS: 0241U; 36415; 71045; 80048; 80076; 83605; 83735; 85025; 87040; 93005; 94640; 94644; 96361; 96365; 96375; 99285; 99291; J0456; J0696; J1100

== ENCOUNTER 2021-07-16 06:07 | Outpatient (REF) | payer MEDICAID, SELFPAY ==
--- NOTE | ~2021-07-16 | CT_ITS ---
EXAMINATION: CT ABDOMEN AND PELVIS WITH CONTRAST CLINICAL INFORMATION: Abnormal weight loss COMPARISON: Abdominal MRI and ultrasound March 19, 2018 TECHNIQUE: Multidetector volumetric images were obtained from the superior aspect of the liver through the pubic symphysis following administration 85 mL of Omnipaque 350 intravenous contrast. Sagittal and coronal reformatted images were obtained on the technologist's workstation. This CT examination was performed using dose optimization techniques as appropriate, variously including the following: *Automated exposure control *Adjustment of mA and/or kV according to patient size (this includes techniques or standardized protocols for targeted exams where dose is matched to indication/reason for exam; i.e. extremities or head) *Use of iterative reconstruction technique DLP: 537 mGy-cm FINDINGS: Visualized lung bases demonstrate mild dependent atelectasis. A calcified granuloma the right lung base. The liver demonstrates normal size, contour and attenuation. The gallbladder is normal in appearance. The pancreas, spleen and adrenal glands are unremarkable. Small splenule noted. Symmetrically enhancing kidneys. No hydronephrosis of either kidney. The stomach is relatively decompressed and therefore not optimally characterized. Diffuse thickening of the gastric wall is nonspecific but often times related to the stomach is decompressed status. Normal caliber loops of small and large bowel. Normal caliber abdominal aorta. The bladder is normal in appearance. The prostate gland is normal in size. There is no gross free pelvic fluid. No inguinal lymphadenopathy. Mild degenerative changes of the spine. Small sclerotic focus within the right femoral head is nonspecific but statistically a bone island. CT/CT abdomen pelvis w con IMPRESSION: No CT evidence for acute abnormality within the abdomen or pelvis.
[2021-07-16 06:52] LABS: Blood Urea Nitrogen 15 mg/dL (9-16); Estimated Glomerular Filt Rate > 60
[2021-07-16] MEDS: Barium Sulfate Oral (Mocha) 450 ML ORAL.SUSP 900 ML PO (09:25)
[2021-07-16] MEDS: iohexoL 350 MG/ML 100 ML INFUS..BTL 85 ML IV (09:26)
== END 2021-07-16 06:08 | disposition home or self-care (01) ==
LOC: HO.CT 06:07
PROVIDERS: PCP Internal Medicine; Visit Provider Internal Medicine
DX: R63.4 Abnormal weight loss (principal)
CPT/HCPCS: 36415; 74177; 82565; 84520; Q9967

== ENCOUNTER 2021-08-17 20:50 | Emergency (ER) | payer MEDICAID, SELFPAY ==
--- NOTE | 2021-08-17 | ECG_ITS ---
Test Reason : CHEST PAIN Blood Pressure : / mmHG Vent. Rate : 086 BPM Atrial Rate : 086 BPM P-R Int : 142 ms QRS Dur : 090 ms QT Int : 328 ms P-R-T Axes : 040 030 036 degrees QTc Int : 392 ms Normal sinus rhythm Normal ECG When compared with ECG of 02-FEB-2021 21:24, No significant change was found Referred By: Generic ED Physician Electronically Signed By:Jeff Anderson
--- NOTE | ~2021-08-17 | XR_ITS ---
EXAMINATION: XR CHEST CLINICAL INFORMATION: Chest pain. Positive Covid COMPARISON: 02/01/2021 TECHNIQUE: Frontal view of the chest was obtained. FINDINGS: No significant abnormality is noted involving the heart, lungs, mediastinum, bony thorax or soft tissues. XR/XR chest 1V IMPRESSION: Unremarkable examination.
[2021-08-17 22:08] VITALS: BP 133/73; PULSE 98; RESP 16; TEMP 37.8; O2SAT 96; BMI 30.7
[2021-08-17 22:34] LABS: MANUAL DIFF FLAG NO
[2021-08-17 22:37] LABS: Basophils Percent Auto 0.2 % (0-2); Eosinophils Absolute Auto 0.1 X10*3/uL (0.0-0.4); Eosinophils Percent Auto 0.7 % (0-4); Hematocrit 41.4 % (42.0-52.0); Hemoglobin 13.6 g/dl (14.0-18.0); Imm Gran Abs Auto 0.02 X10*3/uL (0.00-0.03); Imm Gran Pct Auto 0.2 % (0.0-0.4); Lymphocytes Absolute Auto 0.8 X10*3/uL (1.2-4.9); Lymphocytes Percent Auto 9.4 % (20-40); Mean Corpuscular HGB Conc 32.9 g/dl (31.0-36.0); Mean Corpuscular Hemoglobin 29.3 pg (27.0-33.0); Mean Corpuscular Volume 89.2 fL (80.0-98.0); Mean Platelet Volume 10.7 fL (9.4-12.4); Monocytes Percent Auto 11.8 % (2-11); Neutrophils Absolute Auto 6.5 x10*3/uL (2.0-8.3); Neutrophils Percent Auto 77.7 % (45-73); Platelet Count 227 X10*3/uL (160-400); Red Blood Count 4.64 X10*6/uL (4.60-5.80); Red Cell Distribution Width 13.4 % (11.0-16.0); White Blood Count 8.3 X10*3/uL (4.8-10.8)
[2021-08-17 22:48] LABS: Lactic Acid 1.8 mmol/L (0.5-2.0)
[2021-08-17 22:52] LABS: COVID-19 Test Positive (Negative); IDNOW Serial# 16C4AD1C
[2021-08-17 22:53] LABS: Alanine Aminotransferase 28 U/L (0-40); Albumin Level 4.2 g/dL (3.5-5.0); Alkaline Phosphatase 68 U/L (39-117); Anion Gap 12 (12-20); Aspartate Amino Transferase 21 U/L (5-37); Bilirubin Total 0.4 mg/dL (0.0-1.0); Blood Urea Nitrogen 15 mg/dL (9-16); Calcium 9.4 mg/dL (8.4-10.2); Carbon Dioxide 25 mmol/L (22-29); Chloride 105 mmol/L (96-108); Creatinine Clr Calc Pharmacy 127.5; Estimated Glomerular Filt Rate > 60; Glucose Random 80 mg/dL (60-115); Influenza A Negative (Negative); Influenza B2 Negative (Negative); Sodium 138 mmol/L (135-145); Total Protein 6.9 g/dL (6.5-8.0)
[2021-08-17 22:55] LABS: Troponin-I High Sensitivity 3.9 ng/L (<3.5-35.0)
--- NOTE | 2021-08-17 23:37 | ED.FEVER ---
HPI - Fever General Chief Complaint: General Medical Stated Complaint: High fever Time Seen by Provider: 08/17/21 23:29 Source: patient and physician non invasive cardiologist Mode of arrival: ambulatory Limitations: no limitations History of Present Illness HPI Narrative: vaccinated x 3, symptoms just this AM, came back from [place] 1 week ago, feels he has burning and pain in his chest since this AM. MD elicited complaint: fever, malaise and other (chest pain) Pertinent past history: diabetes Onset (ago): hour(s) (all day since this morning) Context: recent travel ([place] 1 week ago ) Exacerbating factors: nothing Relieving factors: acetaminophen (taken this afternoon) Associated symptoms: chills, myalgias, cough, chest pain and nausea Treatments prior to arrival fever: acetaminophen Related Data Previous Rx's Medication Instructions Recorded amoxicillin 875 mg-potassium 1 tab PO Q12H 10 Days #20 tab 04/26/20 clavulanate 125 mg tablet (Augmentin) albuterol sulfate 90 mcg/actuation 2 puff INHALATION QID PRN #6.7 g 02/03/21 aerosol inhaler azithromycin 250 mg tablet 250 mg PO DAILY 4 Days #4 tab 02/03/21 hydrocodone-homatropine 5 mg-1.5 5 ml PO Q6H PRN #60 ml 02/03/21 mg/5 mL oral syrup prednisone 20 mg tablet 40 mg PO DAILY 5 Days #10 tab 02/03/21 ondansetron 4 mg disintegrating 4 mg PO Q8H PRN #20 tab 08/18/21 tablet prednisone 20 mg tablet 40 mg PO DAILY 5 Days #10 tab 08/18/21 Allergies Allergy/AdvReac Type Severity Reaction Status Date / Time No Known Allergies Allergy Unverified 12/12/19 18:26 [No Known Allergies*] Review of Systems Review of Systems: Constitutional : pos Fever, pos Chills, pos Fatigue, pos Malaise ENT/Mouth : No sore throat, No Rhinorrhea Eyes: No Eye Pain, No Swelling, No Redness Cardiovascular : pos Chest Pain, No SOB, No Dyspnea on Exertion, No Orthopnea, No Edema, No Palpitations Respiratory : pos Cough, No Sputum, No Wheezing Gastrointestinal : pos Nausea, No Vomiting, No Diarrhea, No Constipation, No abdominal Pain, No Hematochezia, No Melena Genitourinary : No Dysuria, No Urinary Frequency, No Hematuria, Musculoskeletal : No joint pain, pos Myalgias, No Joint Swelling Skin : No Skin Lesions, No rash Neuro : pos Weakness, No Numbness, No Dizziness, No Headache Psych : No Anxiety/Panic, No Depression Heme/Lymph: No Bruising, No Bleeding,No Lymphadenopathy Endocrine : No Polyuria, No Polydipsia All other systems reviewed and are negative [facility] Past Medical History Medical History Asthma Diabetes Diabetes Hypertension Social History Social History (Updated 02/02/21 @ 21:09 by Kitty Taylor DO) Alcohol intake: never Patient Tobacco Use Status: Current someday Tobacco user Substance Use Type: Marijuana Advance Directives: No Physical Exam Vital Signs: Vital Signs: Last Vital Signs Temp 100.1 F 08/17/21 22:08 Pulse 86 08/18/21 00:41 Resp 16 08/18/21 00:41 BP 113/52 L 08/18/21 00:41 Pulse Ox 94 08/18/21 00:41 BMI result Body Mass Index 30.7 Appearance: Alert. Oriented X3. No acute distress. Covered in a blanket Eyes: Pupils equal, round and reactive to light. ENT: Pharynx normal. Neck: Normal inspection. Neck supple. CVS: Normal heart rate and rhythm. Pulses normal. Respiratory: No respiratory distress. Breath sounds normal. Abdomen: Soft and non-tender. Skin: Skin warm and dry. Normal skin color. Normal skin turgor. Extremities: No lower extremity edema. No calf ttp Neuro: Oriented X 3. No motor deficit. No sensory deficit. Course Course Course Narrative: troponin, ddimer negative 94% on RA given RAD will start on prednisone and refer to [facility] can be sent home no hypoxia will refer to [facility] MDM - Fever MDM Narrative Medical decision making narrative: 46 yo male with hx of HTN, DM, asthma, vaccinated x 3 for COVID comes in with 1 day of symptoms here with cough, chest pain, fevers - at this time 98% on RA, he is not toxic but has fevers will give zofran and motrin will obtain ddimer given recent travel and c/o chest pain - xray ordered. troponin flat with > 6 hours of symptoms. Dispo per results and workup. Lab Data Result diagrams: 08/17/21 22:26 08/17/21 22:26 Labs: Lab Results 08/17/21 08/17/21 08/17/21 Range/Units 22:26 22:26 22:26 WBC 8.3 (4.8-10.8) X10*3/uL RBC 4.64 (4.60-5.80) X10*6/uL Hgb 13.6 L (14.0-18.0) g/dl Hct 41.4 L (42.0-52.0) % MCV 89.2 (80.0-98.0) fL MCH 29.3 (27.0-33.0) pg MCHC 32.9 (31.0-36.0) g/dl RDW 13.4 (11.0-16.0) % Plt Count 227 (160-400) X10*3/uL MPV 10.7 (9.4-12.4) fL Immature Gran % (Auto) 0.2 (0.0-0.4) % Neut % (Auto) 77.7 H (45-73) % Lymph % (Auto) 9.4 L (20-40) % [place] % (Auto) 11.8 H (2-11) % Eos % (Auto) 0.7 (0-4) % Baso % (Auto) 0.2 (0-2) % Lymph # (Auto) 0.8 L (1.2-4.9) X10*3/uL [place] # (Auto) 1.0 (0.1-1.2) X10*3/uL Eos # (Auto) 0.1 (0.0-0.4) X10*3/uL Baso # (Auto) 0.0 (0.0-0.2) X10*3/uL Abs Immat Gran (auto) 0.02 (0.00-0.03) X10*3/uL Absolute Neuts (auto) 6.5 (2.0-8.3) x10*3/uL Absolute Nucleated RBC 0.000 (0.0-0.012) X10*3/uL Nucleated RBC % (auto) 0.0 (0.0-0.2) /100WBC D-Dimer High Sensitivty NG/ML Sodium 138 (135-145) mmol/L Potassium 4.0 (3.3-5.1) mmol/L Chloride 105 (96-108) mmol/L Carbon Dioxide 25 (22-29) mmol/L Anion Gap 12 (12-20) BUN 15 (9-16) mg/dL Creatinine 0.88 (0.5-1.4) mg/dL Estim Creat Clear Calc 127.5 Estimated GFR > 60 Random Glucose 80 D (60-115) mg/dL Lactic Acid (0.5-2.0) mmol/L Calcium 9.4 (8.4-10.2) mg/dL Total Bilirubin 0.4 (0.0-1.0) mg/dL AST 21 (5-37) U/L ALT 28 (0-40) U/L Alkaline Phosphatase 68 (39-117) U/L Troponin I High Sens 3.9 (<3.5-35.0) ng/L Total Protein 6.9 (6.5-8.0) g/dL Albumin 4.2 (3.5-5.0) g/dL COVID-19 (REECE) (Negative) COVID-19 Clin Com Influenza Type A (KRISTEN) (Negative) Influenza Type B (KRISTEN) (Negative) Influenza A & B Note 08/17/21 08/17/21 08/17/21 Range/Units 22:26 22:26 22:26 WBC (4.8-10.8) X10*3/uL RBC (4.60-5.80) X10*6/uL Hgb (14.0-18.0) g/dl Hct (42.0-52.0) % MCV (80.0-98.0) fL MCH (27.0-33.0) pg MCHC (31.0-36.0) g/dl RDW (11.0-16.0) % Plt Count (160-400) X10*3/uL MPV (9.4-12.4) fL Immature Gran % (Auto) (0.0-0.4) % Neut % (Auto) (45-73) % Lymph % (Auto) (20-40) % [place] % (Auto) (2-11) % Eos % (Auto) (0-4) % Baso % (Auto) (0-2) % Lymph # (Auto) (1.2-4.9) X10*3/uL [place] # (Auto) (0.1-1.2) X10*3/uL Eos # (Auto) (0.0-0.4) X10*3/uL Baso # (Auto) (0.0-0.2) X10*3/uL Abs Immat Gran (auto) (0.00-0.03) X10*3/uL Absolute Neuts (auto) (2.0-8.3) x10*3/uL Absolute Nucleated RBC (0.0-0.012) X10*3/uL Nucleated RBC % (auto) (0.0-0.2) /100WBC D-Dimer High Sensitivty NG/ML Sodium (135-145) mmol/L Potassium (3.3-5.1) mmol/L Chloride (96-108) mmol/L Carbon Dioxide (22-29) mmol/L Anion Gap (12-20) BUN (9-16) mg/dL Creatinine (0.5-1.4) mg/dL Estim Creat Clear Calc Estimated GFR Random Glucose (60-115) mg/dL Lactic Acid 1.8 (0.5-2.0) mmol/L Calcium (8.4-10.2) mg/dL Total Bilirubin (0.0-1.0) mg/dL AST (5-37) U/L ALT (0-40) U/L Alkaline Phosphatase (39-117) U/L Troponin I High Sens (<3.5-35.0) ng/L Total Protein (6.5-8.0) g/dL Albumin (3.5-5.0) g/dL COVID-19 (REECE) Positive A (Negative) COVID-19 Clin Com See Note Influenza Type A (KRISTEN) Negative (Negative) Influenza Type B (KRISTEN) Negative (Negative) Influenza A & B Note See Note 08/18/21 Range/Units 00:35 WBC (4.8-10.8) X10*3/uL RBC (4.60-5.80) X10*6/uL Hgb (14.0-18.0) g/dl Hct (42.0-52.0) % MCV (80.0-98.0) fL MCH (27.0-33.0) pg MCHC (31.0-36.0) g/dl RDW (11.0-16.0) % Plt Count (160-400) X10*3/uL MPV (9.4-12.4) fL Immature Gran % (Auto) (0.0-0.4) % Neut % (Auto) (45-73) % Lymph % (Auto) (20-40) % [place] % (Auto) (2-11) % Eos % (Auto) (0-4) % Baso % (Auto) (0-2) % Lymph # (Auto) (1.2-4.9) X10*3/uL [place] # (Auto) (0.1-1.2) X10*3/uL Eos # (Auto) (0.0-0.4) X10*3/uL Baso # (Auto) (0.0-0.2) X10*3/uL Abs Immat Gran (auto) (0.00-0.03) X10*3/uL Absolute Neuts (auto) (2.0-8.3) x10*3/uL Absolute Nucleated RBC (0.0-0.012) X10*3/uL Nucleated RBC % (auto) (0.0-0.2) /100WBC D-Dimer High Sensitivty < 150 NG/ML Sodium (135-145) mmol/L Potassium (3.3-5.1) mmol/L Chloride (96-108) mmol/L Carbon Dioxide (22-29) mmol/L Anion Gap (12-20) BUN (9-16) mg/dL Creatinine (0.5-1.4) mg/dL Estim Creat Clear Calc Estimated GFR Random Glucose (60-115) mg/dL Lactic Acid (0.5-2.0) mmol/L Calcium (8.4-10.2) mg/dL Total Bilirubin (0.0-1.0) mg/dL AST (5-37) U/L ALT (0-40) U/L Alkaline Phosphatase (39-117) U/L Troponin I High Sens (<3.5-35.0) ng/L Total Protein (6.5-8.0) g/dL Albumin (3.5-5.0) g/dL COVID-19 (REECE) (Negative) COVID-19 Clin Com Influenza Type A (KRISTEN) (Negative) Influenza Type B (KRISTEN) (Negative) Influenza A & B Note ECG Data ECG #1: Attestation: I personally reviewed and interpreted this ECG as follows: ECG interpretation date: 08/17/21 ECG interpretation time: 23:52 Interpretation: Rate: 86 Rhythm: NSR [place]: normal Normal P waves. Normal CHRIS. Normal QRS complex. ST T wave : normal no CATALINA qTC: normal prior studies: no acute ischemia The study has been interpreted contemporaneously by me. . Discharge Plan Discharge Clinical Impression: COVID-19 Patient Disposition: Home, Self-Care Instructions: COVID-19 (Coronavirus Disease 2019) (ED) Additional Instructions: negativo para neumon?a covid, las pruebas de coraz?n y co?gulos de issa fueron negativas regrese al servicio de urgencias si tiene alguna inquietud. Si no puede caminar hasta el ba?o, le falta el aire, busque atenci?n m?dica. tome tylenol y motrin para la fiebre, est? doreen alternar Prescriptions: New prednisone 20 mg tablet 40 mg PO DAILY 5 Days Qty: 10 0RF ondansetron 4 mg tablet,disintegrating 4 mg PO Q8H PRN (Reason: nausea and vomiting) Qty: 20 0RF No Action amoxicillin-pot clavulanate [Augmentin] 875-125 mg tablet 1 tab PO Q12H 10 Days Qty: 20 0RF azithromycin 250 mg tablet 250 mg PO DAILY 4 Days Qty: 4 0RF Rx Instructions: start on day 2 of therapy prednisone 20 mg tablet 40 mg PO DAILY 5 Days Qty: 10 0RF albuterol sulfate 90 mcg/actuation HFA aerosol inhaler 2 puff inhalation QID PRN (Reason: shortness of breath or wheezing) Qty: 6.7 0RF hydrocodone-homatropine 5-1.5 mg/5 mL syrup 5 ml PO Q6H PRN (Reason: cough) Qty: 60 0RF Stand Alone Forms: Work/School Release Print Language: Croatian
[2021-08-17 23:49] VITALS: BP 137/76; PULSE 96; RESP 20; O2SAT 95
[2021-08-17] MEDS: Ondansetron ODT 4 MG TAB.RAPDIS TRANSLINGU (23:50)
[2021-08-17] MEDS: Ibuprofen 600 MG TABLET PO (23:50)
[2021-08-18 00:41] VITALS: BP 113/52; PULSE 86; RESP 16; O2SAT 94
[2021-08-18 01:27] LABS: D Dimer High Sensitivity < 150 NG/ML
[2021-08-18 01:33] VITALS: TEMP 37.6
[2021-08-18 01:34] VITALS: TEMP 37.6
[2021-08-18 02:13] VITALS: BP 105/47; PULSE 77; RESP 16; TEMP 36.9; O2SAT 96
== END 2021-08-18 02:18 | disposition home or self-care (01) ==
PROVIDERS: Emergency Provider Emergency Medicine; PCP Internal Medicine
DX: U07.1 COVID-19 (principal); R50.9 Fever, unspecified; M79.10 Myalgia, unspecified site; R05.9 Cough, unspecified; R07.89 Other chest pain; Z79.899 Other long term (current) drug therapy
CPT/HCPCS: 36415; 71045; 80053; 83605; 84484; 85025; 85379; 87040; 87502; 87635; 93005; 99283; 99284

== ENCOUNTER → 2021-11-09 10:53 | Outpatient (BNVA) | payer MEDICAID, SELFPAY | PROVIDERS: PCP Internal Medicine; Referring Provider Internal Medicine; Visit Provider Nurse Practitioner | DX: Z01.818 Encounter for other preprocedural examination (principal) | CPT/HCPCS: 99202 ==

== ENCOUNTER 2022-01-19 09:32 | Outpatient (REF) | payer MEDICAID, SELFPAY ==
--- NOTE | ~2022-01-19 | CT_ITS ---
EXAMINATION: CT CHEST WITHOUT CONTRAST CLINICAL INFORMATION: Pulmonary fibrosis COMPARISON: Previous chest x-ray most recent July 2021 TECHNIQUE: Multidetector volumetric CT imaging of the chest was done. Axial MIP volume rendering provided. Sagittal and coronal reformatted images were obtained. This CT examination was performed using dose optimization techniques as appropriate, variously including the following: *Automated exposure control *Adjustment of mA and/or kV according to patient size (this includes techniques or standardized protocols for targeted exams where dose is matched to indication/reason for exam; i.e. extremities or head) *Use of iterative reconstruction technique DLP: 369 mGy-cm FINDINGS: AIR SURVEILLANCE OPERATOR: Unremarkable. LUNGS: There is a 7 mm calcified right lower lobe nodule axial image 174 series 6. There is a 2 mm calcified right middle lobe nodule axial image 177 series 6. There is dependent atelectasis. No evidence of interstitial lung disease. No endobronchial or endotracheal lesion. MEDIASTINUM: Calcified right hilar and mediastinal lymph nodes. No enlarged lymph nodes. The mediastinum is otherwise normal. CORONARY ARTERY CALCIFICATION: Minimal PLEURA: There is no pleural effusion. No pleural mass or thickening. AXILLA: Small bilateral axillary lymph nodes. Nodule in the right subcutaneous fat of the lateral abdominal wall, question representing lymph node axial image 40 series the measuring 2 mm. UPPER ABDOMEN: Unremarkable. OSSEOUS STRUCTURES: Degenerative changes of the spine. CT/CT chest wo IV con IMPRESSION: No evidence of interstitial lung disease. Calcified right pulmonary nodules and right hilar and mediastinal lymph nodes suggestive of old granulomatous disease. Fleischner guidelines were followed.
== END 2022-01-19 09:33 | disposition home or self-care (01) ==
LOC: HO.CT 09:32
PROVIDERS: PCP Internal Medicine; Visit Provider Internal Medicine
DX: J84.10 Pulmonary fibrosis, unspecified (principal); J96.11 Chronic respiratory failure with hypoxia; R63.4 Abnormal weight loss
CPT/HCPCS: 71250

== ENCOUNTER 2022-03-10 07:52 | Day surgery (SDC) | payer MEDICAID, SELFPAY ==
[2022-03-07 10:45] VITALS: BMI 29.9
--- NOTE | 2022-03-09 13:08 | P.CONAN_ITS ---
Documented by User: Cynthia Chance NP 03/09/22 13:11 HPI - Anesthesia Eval Consult details Narrative: 47yo M for Colonoscopy PMFSH Active Problems Active Problems: All Active Problems (Updated 11/09/21 @ 11:38 by MYLES Finley) Pre-op examination (Acute) Chronic pain (Acute) Depression (Acute) Cannabis use disorder (Acute) Cervical radiculopathy (Acute) Thoracic spinal stenosis (Acute) Lumbar spinal stenosis (Acute) Lumbar degenerative disc disease (Acute) COVID-19 (Acute) Past Medical History Medical History (Updated 11/09/21 @ 11:38 by MYLES Finley) Asthma Diabetes Diabetes Hypertension Family History Family History (Updated 11/09/21 @ 11:14 by JANNET Garcia) Mother Diabetes Brother Diabetes Mother Hypertension Surgical History Surgical History (Updated 11/09/21 @ 11:11 by JANNET Garcia) History of back surgery Hx of appendectomy Social History Social History (Updated 02/02/21 @ 21:09 by Christine Taylor DO) Alcohol intake: never Patient Tobacco Use Status: Current everyday Tobacco user Cigarette Packs Per Day: 0.5 Cigarettes Per Day: 10.0 Date Education Initiated: 03/10/22 Use of substances other than those prescribed or required for medical reasons: No Substance Use Type: Marijuana Are you DNR?: No Advance Directives: No Advance Directives Information Provided: Yes Meds Allergies Allergy/AdvReac Type Severity Reaction Status Date / Time No Known Allergies Allergy Verified 11/09/21 11:05 [No Known Allergies*] Home Medications Medication Instructions Recorded Confirmed Last Taken Type alcohol swabs (Alcohol Prep Pads) pad topical 11/09/21 Unknown History amitriptyline 100 mg tablet 100 mg PO BEDTIME 11/09/21 Unknown History atorvastatin 40 mg tablet 40 mg PO BEDTIME 11/09/21 Unknown History blood sugar diagnostic (FreeStyle #10 ea 11/09/21 Unknown History Lite Strips) empagliflozin 25 mg tablet 25 mg PO QAM 11/09/21 Unknown History (Jardiance) fluoxetine 40 mg capsule 40 mg PO QAM 11/09/21 Unknown History gabapentin 300 mg capsule 300 mg PO 11/09/21 Unknown History glipizide 10 mg tablet 10 mg PO 11/09/21 Unknown History hydroxyzine HCl 50 mg tablet 50 mg PO TID PRN 11/09/21 Unknown History insulin glargine 100 unit/mL (3 40 unit subcut QPM 11/09/21 Unknown History mL) subcutaneous pen (Lantus Solostar U-100 Insulin) lancets 33 gauge (TRUEplus Lancets) #100 ea 11/09/21 Unknown History lisinopril 20 mg tablet 20 mg PO DAILY 11/09/21 Unknown History metformin 1,000 mg tablet 1,000 mg PO 11/09/21 Unknown History omeprazole 20 mg capsule,delayed 20 mg PO QAM 11/09/21 Unknown History release oxycodone 5 mg tablet 5 mg PO Q12H PRN pain 11/09/21 Unknown History pen needle, diabetic 32 gauge x #50 ea 11/09/21 Unknown History (BD Ultra-Fine Karishma Pen Needle) Exam Exam Date and Time: March 09, 2022 1308 Height,Weight and Vital Signs: Height 5 ft 11 in Weight 97.522 kg Pertinent Lab Results Pertinent Lab Results: Laboratory Tests 08/17/21 08/17/21 22:26 22:26 WBC 8.3 Hgb 13.6 L Hct 41.4 L Plt Count 227 Sodium 138 Potassium 4.0 Chloride 105 Carbon Dioxide 25 BUN 15 Creatinine 0.88 Narrative Narrative: EKG 07/2021 Vent. Rate : 086 BPM ? ? Atrial Rate : 086 BPM ?? P-R Int : 142 ms? QRS Dur : 090 ms ? ? QT Int : 328 ms ? ? ? P-R-T Axes : 040 030 036 degrees ?? QTc Int : 392 ms ? Normal sinus rhythm Normal ECG When compared with ECG of 02-FEB-2021 21:24, No significant change was found Assessment and Plan Assessment Anesthesia Assessment: Chart Reviewed Documented by User: Emelia Whelan MD 03/10/22 08:28 [facility] Past Medical History Medical History (Updated 11/09/21 @ 11:38 by MYLES Finley) Asthma Diabetes Diabetes Hypertension Family History Family History (Updated 11/09/21 @ 11:14 by JANNET Garcia) Mother Diabetes Brother Diabetes Mother Hypertension Family history of problems with anesthesia: No Surgical History Surgical History (Updated 11/09/21 @ 11:11 by JANNET Garcia) History of back surgery Hx of appendectomy History of Problems with Anesthesia: No Social History Social History (Updated 02/02/21 @ 21:09 by Christine Taylor DO) Alcohol intake: never Patient Tobacco Use Status: Current everyday Tobacco user Cigarette Packs Per Day: 0.5 Cigarettes Per Day: 10.0 Date Education Initiated: 03/10/22 Use of substances other than those prescribed or required for medical reasons: No Substance Use Type: Marijuana Are you DNR?: No Advance Directives: No Advance Directives Information Provided: Yes Meds Allergies Allergy/AdvReac Type Severity Reaction Status Date / Time No Known Allergies Allergy Verified 11/09/21 11:05 [No Known Allergies*] Home Medications Medication Instructions Recorded Confirmed Last Taken Type alcohol swabs (Alcohol Prep Pads) pad topical 11/09/21 Unknown History amitriptyline 100 mg tablet 100 mg PO BEDTIME 11/09/21 Unknown History atorvastatin 40 mg tablet 40 mg PO BEDTIME 11/09/21 Unknown History blood sugar diagnostic (FreeStyle #10 ea 11/09/21 Unknown History Lite Strips) empagliflozin 25 mg tablet 25 mg PO QAM 11/09/21 Unknown History (Jardiance) fluoxetine 40 mg capsule 40 mg PO QAM 11/09/21 Unknown History gabapentin 300 mg capsule 300 mg PO 11/09/21 Unknown History glipizide 10 mg tablet 10 mg PO 11/09/21 Unknown History hydroxyzine HCl 50 mg tablet 50 mg PO TID PRN 11/09/21 Unknown History insulin glargine 100 unit/mL (3 40 unit subcut QPM 11/09/21 Unknown History mL) subcutaneous pen (Lantus Solostar U-100 Insulin) lancets 33 gauge (TRUEplus Lancets) #100 ea 11/09/21 Unknown History lisinopril 20 mg tablet 20 mg PO DAILY 11/09/21 Unknown History metformin 1,000 mg tablet 1,000 mg PO 11/09/21 Unknown History omeprazole 20 mg capsule,delayed 20 mg PO QAM 11/09/21 Unknown History release oxycodone 5 mg tablet 5 mg PO Q12H PRN pain 11/09/21 Unknown History pen needle, diabetic 32 gauge x #50 ea 11/09/21 Unknown History (BD Ultra-Fine Karishma Pen Needle) Exam Airway Mallampati Class: II TM Dist: >3cm Neck ROM: Full Loose/Missing/Broken Teeth: Yes (Molars) Heart: rr Lungs: cta Assessment and Plan Final Anesthetic Review Family History of Problems with Anesthesia: No History of Problems with Anesthesia: No NPO: Yes ASA Class: II Final Preanesthetic Review: No Changes in Pt Med Stat Patient Risk: Low Procedure Risk: Low Anesthetic Plan Anesthetic Plan: MAC: Disposition: Standard PACU
[2022-03-10 08:06] VITALS: BMI 29.9
[2022-03-10 08:12] VITALS: BP 119/77; PULSE 75; RESP 18; TEMP 36.1; O2SAT 98
[2022-03-10 08:17] VITALS: BMI 29.9
[2022-03-10 08:18] LABS: Glucose, Whole Blood 188 mg/dL (60-115)
[2022-03-10] MEDS: Lactated Ringers 1,000 ML 100 ML IVCONT (08:46)
[2022-03-10] MEDS: Sodium Phosphate,Mono-Dibasic 133 ML ENEMA PR (08:52)
--- NOTE | 2022-03-10 09:05 | P.HPSUR_ITS ---
Pre-Procedural Eval Section A Date of Service: 03/10/22 Section B Chief Complaint: screening Relevant Family History (Specify if Yes): No Relevant Social History: Tobacco Use Present Medications: see Short Stay Collaborative assessment Medical History: Significant History (Asthma Diabetes Diabetes Hypertension) History of Previous Operations: Relevant previous surgery/procedure and date(s) (appendectomy) Allergies: Allergies Allergy/AdvReac Type Severity Reaction Status Date / Time No Known Allergies Allergy Verified 11/09/21 11:05 [No Known Allergies*] Review of Systems Sugical H&P ROS: Negative: Constitution, Cardiovascular, Respiratory, Neuro logical, Psychiatric, Hem-Onc, Allergic/Immunologic, Gastrointestinal, Genitourinary, Musculoskeletal, Integumentary, Endocrine and Eyes/Ears/Nose/Throat Exam Surgical H&P Exam: Normal: HEENT, Normal: Heart, Normal: Lungs, Normal: Extremities, Normal: Abdomen, Normal: Skin and Normal: Neurological Plan Diagnosis/Plan: Unchanged I have reviewed the history and physical and performed a pertinent physical examination on my patient. No changes have occurred unless specified. Time Spent With Patient Time: Total time managing care of this patient today ____ minutes.
--- NOTE | 2022-03-10 09:14 | W.PM.OPN ---
Operative Note Operative Note Date of Service: 03/10/22 Narrative: Operative Information Procedure Description: Colonoscopy Indication: screening Anesthesia: MAC COLONOSCOPY Instrument: Olympus variable stiffness pediatric scope 190L Colonoscopy Monitoring: Vital signs and clinical assessment, continuous EKG monitoring, Pulse oximetry, Carbon Dioxide monitoring and blood pressure monitoring were done throughout the procedure. Colon withdrawal time was 8 minutes. Procedure: The patient was placed in the left lateral decubitis position and pre-procedure medications were administered. After a digital rectal examination of the ano-rectum, the video colonoscope was inserted into the rectum and advanced through the colon to the cecum/TI. The colonoscope was slowly withdrawn in a retrograde panoramic fashion and the colon mucosa was carefully examined including a retroflexed view of the rectum. Findings and interventions are described below. Procedure Difficulty: easy Findings: Terminal Ileum-normal Cecum: 5-6 mm sessile polyp removed with cold forceps Ascending Colon: normal Transverse Colon -normal Descending Colon:normal Sigmoid Colon: normal Rectum: Retroflexion with small internal hemorrhoids, grade I Anorectum - normal Colon preparation: [place] Bowel Preparation Scale Right colon; 2 Transverse colon: 2 Left colon; 1-2 (0 = Unprepared colon segment with mucosa not seen due to solid stool that cannot be cleared. 1 = Portion of mucosa of the colon segment seen, but other areas of the colon segment not well seen due to staining, residual stool and/or opaque liquid. 2 = Minor amount of residual staining, small fragments of stool and/or opaque liquid, but mucosa of colon segment seen well. 3 = Entire mucosa of colon segment seen well with no residual staining, small fragments of stool or opaque liquid) Impression and Post Procedure Diagnosis: polyp internal hemorrhoids Plan: High fiber diet leaflet Avoid straining at stool, epsom salts and sitz bath, anusol supps or cream Repeat Colonoscopy in 5 years due to polyp and fair left sided prep or earlier if clinically indicated Above findings were reviewed with the patient and relevant handouts were provided if indicated.
[2022-03-10 09:42] VITALS: BP 97/54; PULSE 72; RESP 16; TEMP 36.9; O2SAT 100
[2022-03-10 09:58] VITALS: BP 130/85; PULSE 99; RESP 18; TEMP 36.9; O2SAT 99
== END 2022-03-10 10:26 | disposition home or self-care (01) ==
PROVIDERS: PCP Internal Medicine; Visit Provider Internal Medicine Gastroenterology
PROC: 0DJD8ZZ Inspection of Lower Intestinal Tract, Via Natural or Artificial Opening Endoscopic (ICD-10-PCS; CPT 45378; principal; 2022-03-10 09:10)
DX: Z12.11 Encounter for screening for malignant neoplasm of colon (principal); D12.0 Benign neoplasm of cecum; K64.0 First degree hemorrhoids; K21.9 Gastro-esophageal reflux disease without esophagitis; E11.9 Type 2 diabetes mellitus without complications; I10 Essential (primary) hypertension; Z79.4 Long term (current) use of insulin; Z79.899 Other long term (current) drug therapy; F17.210 Nicotine dependence, cigarettes, uncomplicated; F12.90 Cannabis use, unspecified, uncomplicated; Z98.890 Other specified postprocedural states
CPT/HCPCS: 45380; 82947; 88305

== ENCOUNTER → 2022-04-08 10:49 | Outpatient (BNVA) | payer MEDICAID, SELFPAY | PROVIDERS: PCP Internal Medicine; Visit Provider Nurse Practitioner | DX: D12.6 Benign neoplasm of colon, unspecified (principal) | CPT/HCPCS: 99212 ==

== ENCOUNTER 2022-09-22 23:40 | Emergency (ER) | payer MEDICAID, SELFPAY ==
--- NOTE | ~2022-09-22 | XR_ITS ---
EXAMINATION: XR CHEST CLINICAL INFORMATION: Shortness of breath COMPARISON: 01/19/2022 TECHNIQUE: 2 views of the chest were obtained. FINDINGS: Lung volumes are symmetric. No focal consolidation is seen. No evidence of pneumothorax, pleural effusion, or pulmonary edema. The cardiomediastinal contour is unremarkable. No acute osseous findings are seen. XR/XR chest 2V IMPRESSION: No acute cardiopulmonary findings.
[2022-09-22 23:45] VITALS: PULSE 77; RESP 26; O2SAT 96; BMI 25.1
[2022-09-22 23:50] VITALS: TEMP 36.7
--- NOTE | 2022-09-22 23:54 | ECG_ITS ---
Test Reason : DYSPNEA Blood Pressure : / mmHG Vent. Rate : 075 BPM Atrial Rate : 075 BPM P-R Int : 140 ms QRS Dur : 098 ms QT Int : 376 ms P-R-T Axes : 043 046 040 degrees QTc Int : 419 ms Normal sinus rhythm Normal ECG When compared with ECG of 17-AUG-2021 22:10, No significant change was found Referred By: Yamilet Diggs Electronically Signed By:Jeff Anderson
--- NOTE | 2022-09-22 23:55 | ED.SOB ---
HPI - SOB/Dyspnea General Chief Complaint: Dyspnea Stated Complaint: SOB/ Diff breathing Time Seen by Provider: 09/22/22 23:54 Source: patient and family () Mode of arrival: ambulatory History of Present Illness HPI Narrative: 47-year-old male without history of asthma presents with increasing shortness of breath and difficulty breathing for the past 3-4 days and 2 days of fevers and then states that the shortness of breath just became progressively worse today. He denies any recent travel, he does smoke cigarettes. Related Data Home Medications Medication Instructions Recorded Confirmed alcohol swabs (Alcohol Prep Pads) pad topical 11/09/21 amitriptyline 100 mg tablet 100 mg PO BEDTIME 11/09/21 atorvastatin 40 mg tablet 40 mg PO BEDTIME 11/09/21 blood sugar diagnostic (FreeStyle #10 ea 11/09/21 Lite Strips) empagliflozin 25 mg tablet 25 mg PO QAM 11/09/21 (Jardiance) fluoxetine 40 mg capsule 40 mg PO QAM 11/09/21 gabapentin 300 mg capsule 300 mg PO 11/09/21 glipizide 10 mg tablet 10 mg PO 11/09/21 hydroxyzine HCl 50 mg tablet 50 mg PO TID PRN 11/09/21 insulin glargine 100 unit/mL (3 40 unit subcut QPM 11/09/21 mL) subcutaneous pen (Lantus Solostar U-100 Insulin) lancets 33 gauge (TRUEplus Lancets) #100 ea 11/09/21 lisinopril 20 mg tablet 20 mg PO DAILY 11/09/21 metformin 1,000 mg tablet 1,000 mg PO 11/09/21 omeprazole 20 mg capsule,delayed 20 mg PO QAM 11/09/21 release oxycodone 5 mg tablet 5 mg PO Q12H PRN pain 11/09/21 pen needle, diabetic 32 gauge x #50 ea 11/09/21 5/32 (BD Ultra-Fine Karishma Pen Needle) Previous Rx's Medication Instructions Recorded prednisone 50 mg tablet 50 mg PO DAILY 4 days #4 tabs 09/23/22 Allergies Allergy/AdvReac Type Severity Reaction Status Date / Time No Known Allergies Allergy Verified 09/22/22 23:49 [No Known Allergies*] Review of Systems Review of Systems: Pertinent positives and negatives as stated in HPI [facility] Past Medical History Source: nursing notes reviewed Medical History Asthma Diabetes Diabetes Hypertension Surgical History H/O colonoscopy History of back surgery Hx of appendectomy Family History Family History Mother Diabetes Brother Diabetes Mother Hypertension Social History Social History Alcohol intake: never Patient Tobacco Use Status: Current everyday Tobacco user Cigarette Packs Per Day: 0.5 Cigarettes Per Day: 10.0 Substance Use Type: Marijuana Advance Directives: No Advance Directives Information Provided: Yes Physical Exam Vital Signs: Vital Signs: Last Vital Signs Temp 98.0 F 09/22/22 23:50 Pulse 77 09/23/22 01:22 Resp 13 09/23/22 01:22 BP 128/72 09/23/22 01:22 Pulse Ox 97 09/23/22 01:22 O2 Del Method Room Air 09/23/22 01:22 BMI result Body Mass Index 25.1 VITAL SIGNS: Reviewed. GENERAL: Well developed, well nourished, in no acute distress. HEAD: Normocephalic/atramatic EYES: PERRLA, EOMI, bilateral conjunctival injection EARS: Ext canals without abnormality NOSE: Nares patent bilateral OROPHARYNX: no oral lesions noted, posterior pharynx clear NECK: Supple, no adenopathy LUNGS: Good inspiratory effort, significant expiratory wheeze with crackles throughout. Tachypnea is present and increased work of breathing. SpO2<96> CARDIOVASCULAR: Regular rate and rhythm without noted murmurs, no JVD or lower extremity edema. ABDOMEN: Soft, non-tender, non-distended with bowel sounds. MUSCULOSKELETAL: No tenderness, deformities, or effusions noted on gross inspection. EXTREMITIES: No cyanosis, clubbing or edema. SKIN: Inspection of the skin reveals no rashes, ulcerations, jaundice, pallor, or petechiae. NEUROLOGIC: Alert and oriented x 4. Strength and sensation to light touch were grossly intact x 4. Medications Administered Discontinued Medications Generic Name Dose Route Start Last Admin Trade Name Freq PRN Reason Stop Dose Admin Benzonatate 200 mg 09/22/22 23:54 09/23/22 00:13 Benzonatate 100 Mg Capsule PO 09/22/22 23:55 200 mg ONCE ONE Administration Albuterol Sulfate 7.5 mg/ 0 mg 09/22/22 23:54 09/22/22 23:58 Albuterol/Ipratropium 3 ml INHALE 09/22/22 23:55 1 each ONCE ONE Administration Methylprednisolone Sodium Succinate 125 mg 09/23/22 00:51 09/23/22 01:19 Methylprednisolone Sod Succ 125 Mg/2 Ml Vial IVPUSH 09/23/22 00:52 125 mg ONCE ONE Administration Medical Decision Making Medical Decision Making [facility] Narrative: 2355: 47-year-old male with history and clinical presentation of unspecified shortness of breath/dyspnea. DDX: Pneumonia, viral URI, chronic lung disease. 2355: Interventions were 10 mg albuterol treatment, steroids, Tessalon I reviewed all investigations and hematologic values do not demonstrate of leukocytosis or left shift there is no evidence of anemia, chemistries are grossly within normal limits with the exception of mild bump in the glucose which is consistent with patient's underlying diabetes. On chest x-ray did not demonstrate a pneumonia and otherwise my interpretation is in agreement with radiology's impression. On re-evaluation patient is feeling much better and my interpretation is that patient had dyspnea 2/2 obstructive pathology. Differential Diagnosis Please see the discussion above Admission/Observation Consideration of admission/observation: Escalation of care including admission/observation considered Lab Data Please see the discussion above 09/23/22 00:26 09/23/22 00:25 Labs: Lab Results 09/23/22 09/23/22 09/23/22 Range/Units 00:14 00:25 00:26 WBC 8.8 (4.8-10.8) X10*3/uL RBC 4.73 (4.60-5.80) X10*6/uL Hgb 14.2 (14.0-18.0) g/dl Hct 41.8 L (42.0-52.0) % MCV 88.4 (80.0-98.0) fL MCH 30.0 (27.0-33.0) pg MCHC 34.0 (31.0-36.0) g/dl RDW 13.1 (11.0-16.0) % Plt Count 226 (160-400) X10*3/uL MPV 10.9 (9.4-12.4) fL Immature Gran % (Auto) 0.2 (0.0-0.4) % Neut % (Auto) 57.5 (45-73) % Lymph % (Auto) 32.1 (20-40) % [place] % (Auto) 8.7 (2-11) % Eos % (Auto) 1.2 (0-4) % Baso % (Auto) 0.3 (0-2) % Lymph # (Auto) 2.8 (1.2-4.9) X10*3/uL [place] # (Auto) 0.8 (0.1-1.2) X10*3/uL Eos # (Auto) 0.1 (0.0-0.4) X10*3/uL Baso # (Auto) 0.0 (0.0-0.2) X10*3/uL Abs Immat Gran (auto) 0.02 (0.00-0.03) X10*3/uL Absolute Neuts (auto) 5.1 (2.0-8.3) x10*3/uL Absolute Nucleated RBC 0.000 (0.0-0.012) X10*3/uL Nucleated RBC % (auto) 0.0 (0.0-0.2) /100WBC VBG pH (7.32-7.43) VBG pCO2 mmHg VBG pO2 mmHg VBG HCO3 (22-26) mmol/L VBG O2 Saturation % VBG Base Excess mmol/L Sodium 142 (135-145) mmol/L Potassium 4.0 (3.3-5.1) mmol/L Chloride 105 (96-108) mmol/L Carbon Dioxide 26 (22-29) mmol/L Anion Gap 15 (12-20) BUN 15 (9-16) mg/dL Creatinine 0.80 (0.5-1.4) mg/dL Estim Creat Clear Calc 115.3 Estimated GFR > 60 POC Glucose 134 H (60-115) mg/dL Random Glucose 141 H (60-115) mg/dL Calcium 10.3 H D (8.4-10.2) mg/dL Total Bilirubin 0.6 (0.0-1.0) mg/dL AST 18 (5-37) U/L ALT 23 (0-40) U/L Alkaline Phosphatase 78 (39-117) U/L Total Protein 7.4 (6.5-8.0) g/dL Albumin 4.4 (3.5-5.0) g/dL 09/23/22 Range/Units 00:30 WBC (4.8-10.8) X10*3/uL RBC (4.60-5.80) X10*6/uL Hgb (14.0-18.0) g/dl Hct (42.0-52.0) % MCV (80.0-98.0) fL MCH (27.0-33.0) pg MCHC (31.0-36.0) g/dl RDW (11.0-16.0) % Plt Count (160-400) X10*3/uL MPV (9.4-12.4) fL Immature Gran % (Auto) (0.0-0.4) % Neut % (Auto) (45-73) % Lymph % (Auto) (20-40) % [place] % (Auto) (2-11) % Eos % (Auto) (0-4) % Baso % (Auto) (0-2) % Lymph # (Auto) (1.2-4.9) X10*3/uL [place] # (Auto) (0.1-1.2) X10*3/uL Eos # (Auto) (0.0-0.4) X10*3/uL Baso # (Auto) (0.0-0.2) X10*3/uL Abs Immat Gran (auto) (0.00-0.03) X10*3/uL Absolute Neuts (auto) (2.0-8.3) x10*3/uL Absolute Nucleated RBC (0.0-0.012) X10*3/uL Nucleated RBC % (auto) (0.0-0.2) /100WBC VBG pH 7.42 (7.32-7.43) VBG pCO2 44 mmHg VBG pO2 30 mmHg VBG HCO3 28 H (22-26) mmol/L VBG O2 Saturation 44.0 % VBG Base Excess 3.8 mmol/L Sodium (135-145) mmol/L Potassium (3.3-5.1) mmol/L Chloride (96-108) mmol/L Carbon Dioxide (22-29) mmol/L Anion Gap (12-20) BUN (9-16) mg/dL Creatinine (0.5-1.4) mg/dL Estim Creat Clear Calc Estimated GFR POC Glucose (60-115) mg/dL Random Glucose (60-115) mg/dL Calcium (8.4-10.2) mg/dL Total Bilirubin (0.0-1.0) mg/dL AST (5-37) U/L ALT (0-40) U/L Alkaline Phosphatase (39-117) U/L Total Protein (6.5-8.0) g/dL Albumin (3.5-5.0) g/dL Independent Interpretation I performed an independent interpretation of an: EKG Interpretation: Normal sinus rhythm, HR-75, no STEMI, W[place]/QRS/QTC is within normal limits. Radiology Impression Radiologist Impression: No pneumonia, otherwise my interpretation is in agreement with radiology's impression. External Record Review External record reviewed: Outpatient record and Prior outpatient labs Chronic Conditions Patient?s care impacted by: Diabetes Critical Care Time Critical Care Time Critical Care Time: Yes Total Critical Care Time: 30 Attestation: I personally attest to this time spent taking care of the patient. Discharge Plan Discharge Clinical Impression: Dyspnea, URI (upper respiratory infection) Patient Disposition: Home, Self-Care Instructions: Upper Respiratory Infection (ED), Dyspnea (ED) Additional Instructions: 1. Reanudar todos los medicamentos caseros seg?n lo prescrito. 2. Complete el curso corto de esteroides seg?n lo prescrito. 3. Use el inhalador Ventolin, 2 inhalaciones, cada 4 a 6 horas seg?n sea necesario para la dificultad para respirar. 4. Realice un seguimiento con felix proveedor de atenci?n primaria para realizar m?s estudios pulmonares. Regrese a la alice de emergencias si los s?ntomas empeoran. 1. Resume all home medications as prescribed. 2. Complete the short course of steroids as prescribed. 3. Use the Ventolin inhaler, 2 puffs, every 4-6 hours as needed for shortness of breath. 4. Please follow-up with your primary care provider for further pulmonary studies. Return to the ER for any worsening symptoms. Prescriptions: New prednisone 50 mg tablet 50 mg PO DAILY 4 Days Qty: 4 0RF No Action oxycodone 5 mg tablet 5 mg PO Q12H PRN (Reason: pain) omeprazole 20 mg capsule,delayed release(DR/EC) 20 mg PO QAM gabapentin 300 mg capsule 300 mg PO metformin 1,000 mg tablet 1,000 mg PO insulin glargine [Lantus Solostar U-100 Insulin] 100 unit/mL (3 mL) insulin pen 40 unit subcut QPM Jardiance 25 mg tablet 25 mg PO QAM glipizide 10 mg tablet 10 mg PO atorvastatin 40 mg tablet 40 mg PO BEDTIME fluoxetine 40 mg capsule 40 mg PO QAM (DME) FreeStyle Lite Strips Strip See Rx Instructions Not Applicable QID Qty: 10 Rx Instructions: As directed alcohol swabs [Alcohol Prep Pads] Pads, Medicated topical (DME) lancets [TRUEplus Lancets] 33 gauge misc See Rx Instructions Not Applicable QID Qty: 100 Rx Instructions: As directed amitriptyline 100 mg tablet 100 mg PO BEDTIME lisinopril 20 mg tablet 20 mg PO DAILY (DME) pen needle, diabetic [BD Ultra-Fine Karishma Pen Needle] 32 gauge x 5/32 needle See Rx Instructions subcut DIRECTED Qty: 50 Rx Instructions: As directed hydroxyzine HCl 50 mg tablet 50 mg PO TID PRN Referrals: Thalia Galdamez MD [Primary Care Provider] - Print Language: Greenlandic
[2022-09-22] MEDS: Albuterol Sulfate 7.5 MG, Albuterol/Iprat 2.5/0.5MG 3 ML 3 ML INHALE (23:58)
[2022-09-23 00:08] VITALS: PULSE 94; RESP 26; O2SAT 94
[2022-09-23] MEDS: Benzonatate 100 MG CAPSULE 200 MG PO (00:13)
[2022-09-23 00:32] LABS: MANUAL DIFF FLAG NO
[2022-09-23 00:35] LABS: Glucose, Whole Blood 134 mg/dL (60-115)
[2022-09-23 00:36] LABS: Venous Blood Gas Refer to POC result
[2022-09-23 00:36] LABS: Basophils Percent Auto 0.3 % (0-2); Eosinophils Absolute Auto 0.1 X10*3/uL (0.0-0.4); Eosinophils Percent Auto 1.2 % (0-4); Hematocrit 41.8 % (42.0-52.0); Hemoglobin 14.2 g/dl (14.0-18.0); Imm Gran Abs Auto 0.02 X10*3/uL (0.00-0.03); Imm Gran Pct Auto 0.2 % (0.0-0.4); Lymphocytes Absolute Auto 2.8 X10*3/uL (1.2-4.9); Lymphocytes Percent Auto 32.1 % (20-40); Mean Corpuscular Volume 88.4 fL (80.0-98.0); Mean Platelet Volume 10.9 fL (9.4-12.4); Monocytes Absolute Auto 0.8 X10*3/uL (0.1-1.2); Monocytes Percent Auto 8.7 % (2-11); Neutrophils Absolute Auto 5.1 x10*3/uL (2.0-8.3); Neutrophils Percent Auto 57.5 % (45-73); Platelet Count 226 X10*3/uL (160-400); Red Blood Count 4.73 X10*6/uL (4.60-5.80); Red Cell Distribution Width 13.1 % (11.0-16.0); White Blood Count 8.8 X10*3/uL (4.8-10.8)
[2022-09-23 00:36] LABS: VBG Base Excess 3.8 mmol/L; VBG HCO3 28 mmol/L (22-26); VBG pCO2 44 mmHg; VBG pH 7.42 (7.32-7.43); VBG pO2 30 mmHg
[2022-09-23 00:49] LABS: Alanine Aminotransferase 23 U/L (0-40); Albumin Level 4.4 g/dL (3.5-5.0); Alkaline Phosphatase 78 U/L (39-117); Anion Gap 15 (12-20); Aspartate Amino Transferase 18 U/L (5-37); Bilirubin Total 0.6 mg/dL (0.0-1.0); Blood Urea Nitrogen 15 mg/dL (9-16); Calcium 10.3 mg/dL (8.4-10.2); Carbon Dioxide 26 mmol/L (22-29); Chloride 105 mmol/L (96-108); Creatinine Clr Calc Pharmacy 115.3; Estimated Glomerular Filt Rate > 60; Glucose Random 141 mg/dL (60-115); Sodium 142 mmol/L (135-145); Total Protein 7.4 g/dL (6.5-8.0)
[2022-09-23] MEDS: methylPREDNISolone Sod Succ 125 MG/2 ML VIAL IVPUSH (01:19)
[2022-09-23 01:22] VITALS: BP 128/72; PULSE 77; RESP 13; O2SAT 97
[2022-09-23 01:50] LABS: Influenza A PCR NEGATIVE (Negative); Influenza B PCR NEGATIVE (Negative); Resp Syncy Virus RNA Qual PCR NEGATIVE (Negative); SARS COV2 PCR INHOUSE NEGATIVE (Negative)
[2022-09-23] MEDS: Albuterol Sulfate 90 MCG 8 GM INHALER 2 PUFF INHALE (02:35)
[2022-09-23] MEDS: Albuterol/Iprat 2.5/0.5MG 3 ML AMPUL.NEB INHALE (02:35)
== END 2022-09-23 02:44 | disposition home or self-care (01) ==
PROVIDERS: Emergency Provider Student in an Organized Health Care Education/Training Program; PCP Internal Medicine
DX: J06.9 Acute upper respiratory infection, unspecified (principal); R06.02 Shortness of breath; Z20.822 Contact with and (suspected) exposure to COVID-19; Z20.828 Contact with and (suspected) exposure to other viral communicable diseases; E11.9 Type 2 diabetes mellitus without complications; I10 Essential (primary) hypertension; F17.210 Nicotine dependence, cigarettes, uncomplicated; F12.90 Cannabis use, unspecified, uncomplicated; Z79.4 Long term (current) use of insulin; Z79.899 Other long term (current) drug therapy
CPT/HCPCS: 0241U; 36415; 71046; 80053; 82803; 82947; 85025; 93005; 94640; 96374; 99285; J2930

== ENCOUNTER 2022-11-14 19:34 | Outpatient (REF) | payer MEDICAID, SELFPAY ==
[2022-11-14 20:22] LABS: Amphetamine Screen Urine Not Detected (Not Detect); Barbiturates, Urine Not Detected (Not Detect); Benzodiazepines Screen Urine Not Detected (Not Detect); Cannabinoid Screen Urine POSITIVE (Not Detect); Cocaine Screen Urine POSITIVE (Not Detect); Fentanyl, urine Not Detected (Not Detect); Opiate Screen Urine POSITIVE (Not Detect); Phencyclidine Screen Urine Not Detected (Not Detect)
== END 2022-11-14 19:35 | disposition home or self-care (01) ==
LOC: HO.HHCLNP 19:34
PROVIDERS: Visit Provider Internal Medicine
DX: M51.16 Intervertebral disc disorders with radiculopathy, lumbar region (principal)
CPT/HCPCS: 80307